=== PATIENT | female | born 1980 | race African-American/Black ===

== ENCOUNTER 2023-01-16 20:00 | Emergency (ER) | payer MEDICAID ==
[~2023-01-16] VITALS: Ht 170.2 cm; Wt 57.0 kg
[2023-01-16 20:02] VITALS: O2SAT 100
[2023-01-16] MEDS ORDERED: LIDOCAINE HCL 1% 20ML VIAL (Pyxis) INJ ONE (20:43)
[2023-01-16 21:55] VITALS: BP 120/80; PULSE 74; RESP 18; TEMP 98.1
== END 2023-01-16 21:55 | disposition home or self-care (01) ==
LOC: ER 20:00
DX: S91.012A Laceration without foreign body, left ankle, initial encounter (principal); W20.8XXA Other cause of strike by thrown, projected or falling object, initial encounter; Y93.G3 Activity, cooking and baking; Y92.89 Other specified places as the place of occurrence of the external cause; Y99.8 Other external cause status
CPT/HCPCS: 12002; 99283; J3490

== ENCOUNTER 2023-01-20 22:34 | Emergency (ER) | payer MEDICAID ==
[~2023-01-20] VITALS: Ht 172.7 cm; Wt 55.0 kg
[2023-01-20] MEDS ORDERED: KETOROLAC 60MG/2ML VIAL IM STA (23:20)
[2023-01-20] MEDS ORDERED: LIDOCAINE HCL 1% 20ML VIAL (Pyxis) INJ INFIL ONE (23:30)
[2023-01-20] MEDS ORDERED: CEFTRIAXONE SODIUM 1 G/VIAL IM ONE (23:30)
[2023-01-20] MEDS ORDERED: SULF1TAB48 PO (23:37)
[2023-01-20] MEDS ORDERED: CEPH500C2 MT (23:37)
[2023-01-20] MEDS ORDERED: IBUP-2029 PO (23:37)
[2023-01-20 23:58] VITALS: BP 90/52
== END 2023-01-21 00:02 | disposition home or self-care (01) ==
LOC: ER 22:34
DX: S91.012A Laceration without foreign body, left ankle, initial encounter (principal); X58.XXXA Exposure to other specified factors, initial encounter; Y93.89 Activity, other specified; Y92.89 Other specified places as the place of occurrence of the external cause; Y99.8 Other external cause status; Z98.890 Other specified postprocedural states
CPT/HCPCS: 81025; 96372; 99284; J0696; J1885; J3490; Z7610

== ENCOUNTER 2023-02-01 08:18 | Emergency (ER) | payer MEDICAID ==
[~2023-02-01] VITALS: Ht 172.7 cm; Wt 59.0 kg
[~2023-02-01 08:18] MED LIST: CEPH500C2 MT; IBUP-2029 PO; SULF1TAB48 PO
[2023-02-01 08:36] VITALS: BP 105/68; PULSE 72; RESP 16; TEMP 98.2; O2SAT 100
[2023-02-01] MEDS ORDERED: BO1 TP (08:57)
== END 2023-02-01 09:08 | disposition home or self-care (01) ==
LOC: ER 08:18
DX: Z48.02 Encounter for removal of sutures (principal)
CPT/HCPCS: 99282; Z7610; 99281